=== PATIENT | female | born 1975 | race Caucasian/White ===

== ENCOUNTER 2017-11-09 12:45 | Emergency (ER) | payer SELFPAY ==
[~2017-11-09] VITALS: Ht 160 cm; Wt 54.0 kg
[2017-11-09 12:54] VITALS: Ht 160 cm; Wt 54.0 kg
[2017-11-09 14:54] VITALS: BP 131/98
== END 2017-11-09 14:54 | disposition home or self-care (01) ==
LOC: ED 12:45
DX: R05 Cough (principal); R07.9 Chest pain, unspecified